=== PATIENT | male | born 1955 | race Caucasian/White ===

== ENCOUNTER 2016-10-04 14:35 | Emergency (ER) | payer MEDICARE, MEDICAID ==
[2016-10-04] MEDS ORDERED: HYDROcodone/ACETAMIN 5-325 MG* 1 TAB PO ONE (15:10)
--- NOTE | 2016-10-04 15:15 | UC ---
Complaint Male HPI - HPI Summary HPI Summary: Patient is complaining of LEFT flank pain and lower abdominal pain for the last 2 days. denies fever. - History of Current Complaint Chief Complaint: UCAbdominalPain Stated Complaint: URINARY Time Seen by Provider: 10/04/16 15:06 Hx Obtained From: Patient Onset/Duration: Sudden Onset, Lasting Days Timing: Constant Severity Initially: Moderate Severity Currently: Severe Location: Suprapubic Character: Sharp, Burning, Constant Pressure Aggravating Factor(s): Voiding, Nothing - pain at rest Associated Signs And Symptoms: Positive: Back Pain, Hematuria - Allergies/Home Medications Allergies/Adverse Reactions: Allergies Allergy/AdvReac Type Severity Reaction Status Date / Time NSAIDs Allergy Itching Verified 10/04/16 14:49 Statins Allergy Itching Verified 10/04/16 14:49 Home Medications: Home Medications Clopidogrel TAB* [Plavix TAB*] 75 mg PO DAILY 10/04/16 [History Confirmed ] Ezetimibe TAB* [Zetia TAB*] 10 mg PO DAILY 10/04/16 [History Confirmed 10/04/16] Losartan Potassium [Cozaar] 50 mg PO DAILY 10/04/16 [History Confirmed 10/04/16] Morphine Sulfate [Morphine Sulfate ER] 15 mg PO Q4H 10/04/16 [History Confirmed 10/04/16] PMH/Surg Hx/FS Hx/Imm Hx Previously Healthy: Yes - Surgical History Surgical History: Yes Surgery Procedure, Year, and Place: 3 stents in stomach. 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 Neurological: Negative Psychological: Negative All Other Systems Reviewed And Are Negative: Yes Physical Exam Triage Information Reviewed: Yes Appearance: Well-Nourished, Ill-Appearing, Pain Distress Vital Signs: Initial Vital Signs Temp 97.9 F 10/04/16 14:38 Pulse 70 10/04/16 14:38 Resp 16 10/04/16 14:38 BP 127/62 10/04/16 14:38 Pulse Ox 100 10/04/16 14:38 Vital Signs Reviewed: Yes Eye Exam: Normal Eyes: Positive: Conjunctiva Clear ENT Exam: Normal Dental Exam: Normal Neck exam: Normal Respiratory Exam: Normal Respiratory: Positive: Chest non-tender, Lungs clear, Normal breath sounds Cardiovascular Exam: Normal Cardiovascular: Positive: RRR, No Murmur, Pulses Normal Abdomen Description: Positive: CVA Tenderness (R) - neg, CVA Tenderness (L) - positive, Distended, Other: - lower abdominal tenderness Bowel Sounds: Positive: Present Musculoskeletal Exam: Normal Neurological Exam: Normal Skin Exam: Normal Complaint Male Course/Dx - Course Course Of Treatment: hx obtained, exam performed ,meds reviewed, pain meds given ,Ct obtained to R/o stone and hydronephrosis - Differential Dx/Diagnosis Differential Diagnosis/HQI/PQRI: Prostatitis, Pyelonephritis, Ureteral Calculi, Urinary Tract Infection, Other - hydronephrosis Provider Diagnoses: UTI, Flank pain. possible Pyelonephrosis. enlarged prostate Discharge - Discharge Plan Condition: Stable Disposition: HOME Prescriptions: Cephalexin CAP* [Keflex CAP*] 500 mg PO BID #14 cap Patient Education Materials: Urinary Tract Infection in Men (ED) Referrals: Court Goldberg PA [Primary Care Provider] - Additional Instructions: 1. You received a shot of rocephin today 2. Start eh keflex in the morning. 3. COntinue increasing fluid intake 4. If not improved by tomorrow or pain increases and not controlled follow up in ER immediately. 5. I recommend follow up with your primary physician in 2-3 days even if improving.
--- NOTE | 2016-10-04 15:53 | RAD ---
CLINICAL HISTORY: Left CVA pain, abdominal pain COMPARISON: CTA dated December 31, 2010 TECHNIQUE: Multiple contiguous axial CT scans were obtained of the abdomen and pelvis, without intravenous contrast enhancement. Coronal and sagittal multiplanar reformations are submitted for review. Oral contrast was not administered. FINDINGS: The study is limited by the lack of intravenous contrast. This limits evaluation of the solid organs and vasculature. LUNG BASES: The lung bases are clear. LIVER: The liver is normal in shape, size, contour, and attenuation. BILE DUCTS: There is no intrahepatic or extrahepatic biliary dilatation. GALLBLADDER: The gallbladder is normal, without pericholecystic inflammatory change. PANCREAS: The pancreas is normal, without mass or ductal dilatation. SPLEEN: Normal in size and appearance. UPPER GI TRACT: Evaluation of the gastrointestinal tract is limited by incomplete gastric distention. The upper GI tract is unremarkable. SMALL BOWEL AND MESENTERY: The small bowel is normal in contour, course, and caliber. There is no obstruction or dilatation. COLON: The colon is normal in contour, course, caliber. There is no pericolonic inflammatory change. ADRENALS: Normal bilaterally. KIDNEYS: The kidneys are normal in shape, size, contour, and axis. There is no hydronephrosis or nephrolithiasis. BLADDER: The bladder is incompletely distended but is grossly normal. PELVIC ORGANS: The prostate is diffusely enlarged. The seminal vesicles are symmetric. AORTA: There is calcific atherosclerotic disease of the abdominal aorta and its branches, without aneurysmal dilatation. A left common iliac artery stent is noted IVC: Unremarkable LYMPH NODES: There is no lymphadenopathy by size criteria. ABDOMINAL WALL: There is no evidence for abdominal wall hernia. BONES AND SOFT TISSUES: There is a scoliotic curvature of the spine. Degenerative changes are noted OTHER: None IMPRESSION: 1. NO HYDRONEPHROSIS OR NEPHROLITHIASIS. 2. ENLARGED PROSTATE. 3. ATHEROSCLEROSIS
[2016-10-04] MEDS ORDERED: Lidocaine 1% MPF* 2 ML VIAL INJ ONE (15:58)
[2016-10-04] MEDS ORDERED: cefTRIAXone VIAL(*) 1,000 MG VIAL IM ONE (15:58)
[2016-10-04 16:36] VITALS: BP 123/63
== END 2016-10-04 16:45 | disposition home or self-care (01) ==
LOC: UCCORT 14:35
DX: N39.0 Urinary tract infection, site not specified (principal); N40.0 Benign prostatic hyperplasia without lower urinary tract symptoms; R10.32 Left lower quadrant pain; Z88.6 Allergy status to analgesic agent; F17.210 Nicotine dependence, cigarettes, uncomplicated
CPT/HCPCS: 74176; 81003; 87077; 87086; 87186; 96372; 99212; G0463; J0696

== ENCOUNTER 2017-04-04 12:16 | Emergency (ER) | payer MEDICARE, MEDICAID ==
[2017-04-04 12:48] VITALS: BP 109/53
--- NOTE | 2017-04-04 13:39 | UC ---
FLU HPI - HPI Summary HPI Summary: harsh cough, chills, body aches for 1 day-friend has the flu and he did not get a vaccine - History of Current Complaint Chief Complaint: UCRespiratory Stated Complaint: CHEST CONGESTION, COUGH Time Seen by Provider: 04/04/17 13:33 Hx Obtained From: Patient Onset/Duration: Sudden Onset, Lasting Days - 1, Still Present Severity Currently: Moderate Severity Initially: Moderate Pain Intensity: 5 Pain Scale Used: 0-10 Numeric Associated Signs & Symptoms: Positive: Fever - subjective, T Max - 99.5, Myalgia , Cough Related Hx: Possible Flu/Infectious Exposure, Smoking - Allergy/Home Medications Allergies/Adverse Reactions: Allergies Allergy/AdvReac Type Severity Reaction Status Date / Time NSAIDs Allergy Itching Verified 04/04/17 12:48 Statins Allergy Itching Verified 04/04/17 12:48 Home Medications: Home Medications Tamsulosin HCl [Flomax] 0.4 mg PO DAILY 04/04/17 [History Confirmed 04/04/17] PMH/Surg Hx/FS Hx/Imm Hx Previously Healthy: No Endocrine History: Dyslipidemia Cardiovascular History: Hypertension GI/ History: Other Other GI/ History: stents in stomach - Surgical History Surgical History: Yes Surgery Procedure, Year, and Place: 3 stents in stomach. neck fusion - Family History Known Family History: Positive: Hypertension, Renal Disease - Social History Occupation: Disabled Lives: Alone Alcohol Use: None Substance Use Type: Marijuana Substance Use Comment - Amount & Last Used: daily usage Smoking Status (MU): Heavy Every Day Tobacco Smoker Type: Cigarettes Amount Used/How Often: 1 ppd Length of Time of Smoking/Using Tobacco: since age 16 Have You Smoked in the Last Year: Yes Cessation Counseling: Counseled 3+Min - 10 Min - Immunization History Most Recent Influenza Vaccination: no Review of Systems Constitutional: Fever, Chills, Fatigue Skin: Negative Eyes: Negative ENT: Nasal Discharge Respiratory: Cough Cardiovascular: Negative Gastrointestinal: Negative Genitourinary: Negative Motor: Negative Neurovascular: Negative Musculoskeletal: Arthralgia, Myalgia Neurological: Negative Psychological: Negative Is Patient Immunocompromised?: No All Other Systems Reviewed And Are Negative: Yes Physical Exam Triage Information Reviewed: Yes Appearance: Well-Nourished, Ill-Appearing, Pain Distress Vital Signs: Initial Vital Signs Temp 99.5 F 04/04/17 12:39 Pulse 78 04/04/17 12:39 Resp 16 04/04/17 12:39 BP 109/53 04/04/17 12:39 Pulse Ox 98 04/04/17 12:39 Vital Signs Reviewed: Yes Eye Exam: Normal Eyes: Positive: Conjunctiva Clear ENT Exam: Normal ENT: Positive: Normal ENT inspection, Hearing grossly normal, Pharynx normal, TMs normal, Uvula midline. Negative: Nasal congestion, Tonsillar swelling, Tonsillar exudate, Trismus, Muffled voice, Hoarse voice, Dental tenderness, Sinus tenderness Dental Exam: Normal Neck exam: Normal Neck: Positive: Supple, Nontender, No Lymphadenopathy Respiratory Exam: Normal Respiratory: Positive: Chest non-tender, No respiratory distress, No accessory muscle use, Wheezing - R>L Cardiovascular Exam: Normal Cardiovascular: Positive: RRR, No Murmur, Pulses Normal, Brisk Capillary Refill Abdominal Exam: Normal Abdomen Description: Positive: Nontender, No Organomegaly, Soft Musculoskeletal Exam: Normal Musculoskeletal: Positive: Strength Intact, ROM Intact, No Edema Neurological Exam: Normal Neurological: Positive: Alert, Muscle Tone Normal Psychological Exam: Normal Skin Exam: Normal Diagnostics - Laboratory Diagnostic Studies Completed/Ordered: Influenza A/B (-) - Radiology No standard instances Xray Interpretation: No Acute Changes Radiology Interpretation Completed By: ED Physician, Radiologist Re-Evaluation - Re-Evaluation First Eval Change: Improved - Increase air movement and resolve of wheeze Flu Course/Dx - Course Course Of Treatment: Prednisone, Zithromax, Albuterol, Nicotine and Cannabis Cesasation information and support - Differential Dx/Diagnosis Provider Diagnoses: Acute Bronchitis, Bronchospasm, Nicotine dependent, cannabis abuse Discharge - Discharge Plan Condition: Stable Disposition: HOME Prescriptions: Albuterol HFA INHALER* [Ventolin HFA Inhaler*] 2 puff INH Q4H PRN #1 mdi PRN Reason: chest congestion, wheeze cough Azithromycin TAB* [Zithromax TAB (Z-BROOKE) 250 mg #6 tabs] 2 tab PO .TODAY, THEN 1 DAILY #1 brooke predniSONE TAB* [Deltasone TAB*] 20 mg PO DAILY #15 tab Patient Education Materials: How to Stop Smoking (ED), How to Use a Metered- Dose Inhaler (ED), Acute Bronchitis (ED), COPD (Chronic Obstructive Pulmonary Disease) (ED), Cannabis Abuse (ED) Referrals: Court Goldberg PA [Primary Care Provider] - 1 Week
[2017-04-04] MEDS ORDERED: Albuterol/Ipratropium NEB.SOL* Albuterol 2.5 MG/Ipratropium 0.5 MG 3 ML INH ONE (13:40)
--- NOTE | 2017-04-04 14:05 | RAD ---
INDICATION: Fever, wheeze and cough. COMPARISON: There are no prior studies available for comparison. TECHNIQUE: Dual-energy PA and lateral views of the chest were obtained. FINDINGS: The heart is within normal limits in size. Mediastinal and hilar contours appear within normal limits. The lungs are clear. No pleural effusion is seen. There is flattening of the diaphragms suggestive of chronic obstructive pulmonary disease. There are a couple mild compression fractures of mid dorsal vertebral bodies which appear chronic. IMPRESSION: 1. NO EVIDENCE FOR ACUTE FINDING. 2. PROBABLE CHRONIC MILD DORSAL VERTEBRAL BODY COMPRESSION FRACTURES.
== END 2017-04-04 14:19 | disposition home or self-care (01) ==
LOC: UCCORT 12:16
DX: J20.9 Acute bronchitis, unspecified (principal); I10 Essential (primary) hypertension; M79.1 Myalgia; F17.210 Nicotine dependence, cigarettes, uncomplicated; F12.10 Cannabis abuse, uncomplicated; Z88.8 Allergy status to other drugs, medicaments and biological substances
CPT/HCPCS: 71046; 87502; 99212; A9270-GY; G0463